=== PATIENT | female | born 1960 | race Caucasian/White ===

== ENCOUNTER → 2020-08-15 16:23 | Outpatient (BNVA) | payer SELFPAY | PROVIDERS: Family Provider Family Medicine; Visit Provider Orthopaedic Surgery | DX: Z11.59 Encounter for screening for other viral diseases (principal) | CPT/HCPCS: 87635 ==

== ENCOUNTER 2022-06-25 18:41 | Emergency (ER) | payer BC, SELFPAY ==
[2022-06-25 19:27] VITALS: BP 157/94; PULSE 96; RESP 22; TEMP 37.1; O2SAT 99; BMI 38.7
--- NOTE | 2022-06-25 19:37 | W.ED.ABDPA2 ---
HPI - Abdominal Pain General: Chief Complaint: Abdominal Pain Stated Complaint: Needs Covid Related Test\Urgent Care Time Seen by Provider: 06/25/22 19:37 History of Present Illness: 62-year-old female comes in today with right flank/abdominal pain starting about 2:00 this afternoon. Patient reports 4-5 episodes of nausea and vomiting due to the pain. Patient reports it reminds her when she had a kidney stone about 20 to 30 years ago. Patient appears in moderate to severe pain. Patient appears nontoxic. Patient has had gallbladder removed, hysterectomy, and takes Celebrex routinely for arthritis pain. Patient denies any blood in vomit or stool. Patient was referred from urgent care due to her pain and concerns for decreased bowel sounds. Associated Symptoms: Reports nausea and vomiting Review of Systems General: Reports: 10 or more systems reviewed and unremarkable except in HPI and below Card: Denies: chest pain Resp: Denies: dyspnea GI: Reports: abdominal pain, nausea and vomiting : Reports: flank pain [facility] ED PFSH: Medical History (Updated 06/25/22 @ 21:06 by LAYO Clark) Acute abdominal pain in right flank Physical Exam Const: COMMON NORMALS: alert HENMT: COMMON NORMALS: atraumatic HEAD & SCALP: atraumatic Neck/C-Spine: COMMON NORMALS: full ROM Resp: COMMON NORMALS: normal respiratory effort and clear to auscultation bilaterally AUSCULTATION: clear to auscultation bilaterally Cardio: COMMON NORMALS: regular rate and regular rhythm RATE: regular rate RHYTHM: regular rhythm GI: COMMON NORMALS: Soft to palpation AUSCULTATION: Yes normoactive bowel sounds PALPATION: Yes Soft to palpation PERCUSSION: normal to percussion : BLADDER/KIDNEY EXAM: Yes CVA tenderness on the right Back/Pelvis: GENERAL BACK: Yes CVA tenderness Extremity: COMMON NORMALS: normal to inspection Neuro: SENSORIUM/ORIENTATION: Yes alert Skin: COMMON NORMALS: turgor normal GENERAL SKIN EXAM: turgor normal Course Vital Signs: Vital signs: Vital Signs Temperature 98.7 F 06/25/22 19:27 Pulse Rate 96 06/25/22 19:27 Respiratory Rate 18 06/25/22 20:05 Blood Pressure 158/94 06/25/22 20:51 Pulse Oximetry 99 06/25/22 19:27 Oxygen Delivery Me thod 06/25/22 19:27 MDM - Abdominal Pain Medical Decision Making Patient comes in today with complaints of right abdominal pain and flank pain. On exam abdomen is soft with normoactive bowel sounds. Patient had CVA tenderness in the right flank. Patient appeared in moderate to severe pain. Differential diagnosis includes but not limited to bowel obstruction, pancreatitis, renal calculi. CBC and CMP was unremarkable. Urine had a large amount of blood in it. CT of the abdomen and pelvis noted a 3 mm calculus in the distal right ureter. Reviewed exam with patient and family with recommendations for treatment of follow-up with urology. Lab Data : 06/25/22 20:05 06/25/22 20:05 Labs/Radiology: Radiology Impressions Abdomen/Pelvis CT 06/25/22 19:48 IMPRESSION: Small obstructing stone distal right ureter causing right hydronephrosis and hydroureter. Laboratory Results WBC 9.6 10^3/uL (4.0-10.0) 06/25/22 20:05 RBC 4.85 10^6/uL (4.1-5.3) 06/25/22 20:05 Hgb 14.6 g/dL (11.5-15.3) 06/25/22 20:05 Hct 43.5 % (37.0-47.0) 06/25/22 20:05 MCV 89.7 fl (81-99) 06/25/22 20:05 MCH 30.1 pg (28.0-34.0) 06/25/22 20:05 MCHC 33.6 g/dL (30.0-36.0) 06/25/22 20:05 RDW 11.9 % (12.1-15.1) L 06/25/22 20:05 Plt Count 280 10^3/cmm (130-400) 06/25/22 20:05 MPV 9.0 fL (7.4-10.4) 06/25/22 20:05 Neut % (Auto) 87.3 % 06/25/22 20:05 Lymph % (Auto) 6.4 % 06/25/22 20:05 [place] % (Auto) 5.8 % 06/25/22 20:05 Eos % (Auto) 0.0 % 06/25/22 20:05 Baso % (Auto) 0.3 % 06/25/22 20:05 Neut # (Auto) 8.35 10^3/uL (1.8-7.7) H 06/25/22 20:05 Lymph # (Auto) 0.6 10^3/uL (0.8-4.8) L 06/25/22 20:05 [place] # (Auto) 0.6 10^3/uL (0.2-0.9) 06/25/22 20:05 Eos # (Auto) 0.0 10^3/uL (0.0-0.8) 06/25/22 20:05 Baso # (Auto) 0.0 10^3/uL (0.0-0.1) 06/25/22 20:05 Nucleated RBC % (auto) 0 % 06/25/22 20:05 Nucleated RBCs # 0.0 /100WBC 06/25/22 20:05 Sodium 141 mmol/L (136-145) 06/25/22 20:05 Potassium 3.8 mmol/L (3.5-5.1) 06/25/22 20:05 Chloride 104 mmol/L (98-107) 06/25/22 20:05 Carbon Dioxide 25 mmol/L (22-29) 06/25/22 20:05 Anion Gap 15.8 (5-19) 06/25/22 20:05 BUN 18 mg/dL (8-23) 06/25/22 20:05 Creatinine 0.9 mg/dL (0.5-0.9) 06/25/22 20:05 GFR Calculation 63.7 mL/min (90-130) L 06/25/22 20:05 Glucose 121 mg/dL (65-115) H 06/25/22 20:05 Calculated Osmolality 295 mOsm/kg (285-295) 06/25/22 20:05 Calcium 9.3 mg/dL (8.5-10.5) 06/25/22 20:05 Total Bilirubin 0.8 mg/dL (0.15-1.2) 06/25/22 20:05 AST 18 U/L (0-32) 06/25/22 20:05 ALT 18 U/L (0-33) 06/25/22 20:05 Alkaline Phosphatase 77 U/L (35-105) 06/25/22 20:05 Total Protein 7.0 g/dL (6.6-8.7) 06/25/22 20:05 Albumin 4.1 g/dL (3.5-5.2) 06/25/22 20:05 Globulin 2.9 g/dL (1.3-4.6) 06/25/22 20:05 Lipase 16 U/L (13-60) 06/25/22 20:05 Urine Color Yellow (Yellow) 06/25/22 19:27 Urine Appearance Hazy (CLEAR) A 06/25/22 19:27 Urine pH 8 (5-7) H 06/25/22 19:27 Ur Specific [place] 1.015 (1.005-1.030) 06/25/22 19:27 Urine Protein Neg (Negative) 06/25/22 19:27 Urine Glucose (UA) Norm (Normal) 06/25/22 19:27 Urine Ketones 2+ (Negative) H 06/25/22 19:27 Urine Blood 3+ (Negative) H 06/25/22 19:27 Urine Nitrate Negative (Negative) 06/25/22 19:27 Urine Bilirubin Neg (Negative) 06/25/22 19:27 Prot Sulfosalicylic Acd Negative (Negative) 06/25/22 19:27 Urine Urobilinogen Norm mg/dL (Negative) 06/25/22 19:27 Ur Leukocyte Esterase Negative (Negative) 06/25/22 19:27 Urine RBC 40-50 /hpf (0-2) H 06/25/22 19:27 Urine WBC 5-10 /hpf (0-5) H 06/25/22 19:27 Ur Squamous Epith Cells 0-4 /hpf (0-5) H 06/25/22 19:27 Amorphous Sediment Not Reportable 06/25/22 19:27 Urine Bacteria None /hpf (NONE) 06/25/22 19:27 Hyaline Casts 0-4 /lpf H 06/25/22 19:27 Urine Mucus 1+ /hpf 06/25/22 19:27 Discharge Plan Discharge Patient Disposition: Home Clinical Impression: Calculus of distal right ureter Condition: Stable Prescriptions: New hydrocodone-acetaminophen 5-325 mg tablet 1 tab PO Q6H PRN (Reason: pain) Qty: 14 0RF ondansetron 4 mg tablet,disintegrating 4 mg PO Q8H PRN (Reason: nausea and vomiting) Qty: 7 0RF tamsulosin 0.4 mg capsule 0.4 mg PO DAILY Qty: 10 0RF No Action celecoxib [Celebrex] 50 mg capsule 50 mg PO BID RVE.SOL - [employer] 1.5 billion cell Capsule 1 cap PO BEDTIME Discharge Orders: Discharge ED (Routine); Ordered 06/25/22 Ordered By: Kyrie Kent Discharge Diet: Usual diet Discharge Activity: Increase activity as tolerated Patient Instructions: Renal Colic (ED) Activity Restrictions/Additional Instructions: Use medications as directed. They well-hydrated with your normal amount of fluids. Follow-up with urologist for further treatment. Return to ER for worsening symptoms such as fever greater than 100.4, persistent vomiting and inability to hold fluids down, and uncontrolled pain. Coding Level of Care Code ED Supervisor [employer] for [employer] Fwd Exam Comprehensive
--- NOTE | 2022-06-25 19:48 | CTR_ITS ---
PROCEDURE INFORMATION: Exam: CT Abdomen And Pelvis Without Contrast Exam date and time: 06/25/2022 8:26 PM Age: 62 years old Clinical indication: Abdominal pain; Right; Prior surgery; Surgery type: Gb. Hysterectomy; Patient HX: RT flank pain with nausea. History of nephrolithiasis. ; Additional info: Right flank pain TECHNIQUE: Imaging protocol: Computed tomography of the abdomen and pelvis without contrast. Radiation optimization: All CT scans at this facility use at least one of these dose optimization techniques: automated exposure control; mA and/or kV adjustment per patient size (includes targeted exams where dose is matched to clinical indication); or iterative reconstruction. COMPARISON: No relevant prior studies available. RADIATION DOSE METRICS: Total DLP (mGy-cm): 828.3 FINDINGS: Limitations: The absence of intravenous contrast lessens the sensitivity of this study for solid organ abnormalities. Liver: There is no focal abnormality within the liver. Gallbladder and bile ducts: There has been a cholecystectomy. Pancreas: The pancreas is normal. Spleen: The spleen is normal. Adrenal glands: The adrenal glands are normal. Kidneys and ureters: The left kidney is normal. There is no evidence of left hydronephrosis. There is no stone in the left ureter. There is moderate right hydronephrosis. There is right hydroureter. There is a 3 mm sized stone distal right ureter measuring up to 560 Hounsfield units. This stone is not definitely seen on the bitumen plant operator image. Stomach and bowel: Unremarkable. No obstruction. No mucosal thickening. Appendix: No evidence of appendicitis. Intraperitoneal space: There is some mild haziness in the mesenteric fat in the mid abdomen which could represent some mild mesenteric panniculitis. Vasculature: There is no evidence of an abdominal aortic aneurysm. Lymph nodes: There is no evidence of lymphadenopathy. Urinary bladder: Unremarkable as visualized. Reproductive: There has been a hysterectomy. Bones/joints: Unremarkable. No acute fracture. Soft tissues: Unremarkable. CT/CT kidney stone [id number] IMPRESSION: Small obstructing stone distal right ureter causing right hydronephrosis and hydroureter.
[2022-06-25 20:05] VITALS: RESP 18
[2022-06-25 20:05] LABS: Blood Urine 3+ (Negative); Glucose Urine UA Norm (Normal); Ketones Urine 2+ (Negative); Nitrate Urine Negative (Negative); Protein Urine Neg (Negative); Specific Gravity, Urine 1.015 (1.005-1.030); Urine Appearance Hazy (CLEAR); Urine Color Yellow (Yellow); pH Urine 8 (5-7)
[2022-06-25] MEDS: morphine 4 mg/mL SDV 1 mL IVP (20:05)
[2022-06-25] MEDS: sodium chloride 0.9% 500 ML 999 ML IV (20:05)
[2022-06-25] MEDS: ondansetron 2 mg/ML SDV 2 mL 4 MG IVP (20:05)
[2022-06-25] MEDS: ketorolac 30 mg/mL INJ 15 MG IVP (20:05)
[2022-06-25 20:06] LABS: Add Urine Culture? No; Add Urine Microscopic? YES; Bilirubin Urine Neg (Negative); Hyaline Casts Urine 0-4 /lpf; Leukocyte Esterase Urine Negative (Negative); Mucus Urine 1+ /hpf; RBC Urine 40-50 /hpf (0-2); Squamous Epithelial Cell Urine 0-4 /hpf (0-5); Sulfosalicylic Acid Urine Negative (Negative); Urobilinogen Urine Norm (Negative)
[2022-06-25 20:16] LABS: Basophils % 0.3 %; Hematocrit 43.5 % (37.0-47.0); Hemoglobin 14.6 g/dL (11.5-15.3); Lymphocytes # 0.6 10^3/uL (0.8-4.8); Lymphocytes % 6.4 %; Mean Corpuscular HGB Conc 33.6 g/dL (30.0-36.0); Mean Corpuscular Hemoglobin 30.1 pg (28.0-34.0); Mean Corpuscular Volume 89.7 fl (81-99); Monocytes # 0.6 10^3/uL (0.2-0.9); Monocytes % 5.8 %; Neutrophils # 8.35 10^3/uL (1.8-7.7); Neutrophils % 87.3 %; Nucleated Red Blood Cells % 0 %; Platelet Count 280 10^3/cmm (130-400); Red Blood Count 4.85 10^6/uL (4.1-5.3); Red Cell Distribution Width 11.9 % (12.1-15.1); White Blood Count 9.6 10^3/uL (4.0-10.0)
[2022-06-25 20:43] LABS: Alanine Aminotransferase 18 U/L (0-33); Albumin Level 4.1 g/dL (3.5-5.2); Alkaline Phosphatase 77 U/L (35-105); Anion Gap 15.8 (5-19); Aspartate Amino Transferase 18 U/L (0-32); Blood Urea Nitrogen 18 mg/dL (8-23); Calcium 9.3 mg/dL (8.5-10.5); Carbon Dioxide 25 mmol/L (22-29); Chloride 104 mmol/L (98-107); Globulin 2.9 g/dL (1.3-4.6); Glomerular Filtration Rate 63.7 mL/min (90-130); Glucose 121 mg/dL (65-115); Lipase 16 U/L (13-60); Osmolality Calculated 295 mOsm/kg (285-295); Potassium 3.8 mmol/L (3.5-5.1); Sodium 141 mmol/L (136-145); Total Bilirubin 0.8 mg/dL (0.15-1.2)
[2022-06-25 20:51] VITALS: BP 158/94
[2022-06-25] MEDS: HYDROmorphone 1 mg/mL INJ 1 mL 0.5 MG IVP (21:06)
[2022-06-25] MEDS: tamsulosin 0.4 mg Capsule PO (21:06)
[2022-06-25] MEDS: HYDROcodone-acetaminophen 7.5-325 mg Tablet 2 TAB PO (21:39)
[2022-06-25 21:46] VITALS: BP 158/84; PULSE 82; RESP 15; O2SAT 93
--- NOTE | 2022-06-26 10:19 | DCPLANNER ---
Addendum entered by Neyda Brown 07/04/22 08:16: business project manager received the following message from the urology clinic regarding follow up appointment: Patient was scheduled for 06/27/22 @ 0800. Patient stated that she was going to go to [facility] and her primary was getting her set up there. Cancelled appointment . Original Note: business project manager had message to schedule a follow up appointment for patient with urology. business project manager sent patients information to the front office staff at urology. Patients information will be printed and reviewed. Clinic will call patient with appointment information.
== END 2022-06-25 21:40 | disposition home or self-care (01) ==
PROVIDERS: Emergency Medicine; Emergency Provider Nurse Practitioner Family
DX: N20.1 Calculus of ureter (principal)
CPT/HCPCS: 74176; 80053; 81001; 83690; 85025; 96374; 96375; 99285; J1170; J1885; J2270; J2405; J7040